=== PATIENT | female | born 1995 | race American Indian/Alaskan Native ===

== ENCOUNTER 2016-11-18 18:15 | Emergency (ER) | payer MEDICAID ==
[2016-11-18 18:26] VITALS: BMI 39.9
[2016-11-18 18:27] VITALS: TEMP 99.4
--- NOTE | 2016-11-18 20:12 | ED PDOC ---
Arrival/HPI - General Chief Complaint: Back Pain Time Seen by Provider: 11/18/16 18:38 Historian: Patient - History of Present Illness Narrative History of Present Illness (Text): 11/18/16 20:09 21-year-old morbidly obese female with a hx of HTN non compliant with medications for the past 2 years presents today with cough, sore throat, subjective fevers and upper back pain x 3 days. no abdominal pain. no urinary symptoms. pt c/o achy back pain worse with cough. c/o sore throat and pain with swallowing. took otc medications without relief. pt denies urinary symptoms. no other complaints. Time/Duration: Other (3 days) Symptom Onset: Gradual Symptom Course: Worsening Quality: Aching Severity Level: 3, Mild Activities at Onset: Rest Past Medical History - Provider Review Nursing Documentation Reviewed: Yes - Travel History Have you recently traveled outside [place] w/in the past 3 mons?: No - Tetanus Immunization Tetanus Immunization: Unknown - Cardiac Hx Cardiac Disorders: Yes Hx Hypertension: Yes - Pulmonary Hx Respiratory Disorders: No - Neurological Hx Neurological Disorder: No - HEENT Hx HEENT Disorder: No - Renal Hx Renal Disorder: No - Endocrine/Metabolic Hx Endocrine Disorders: Yes Hx Diabetes Mellitus Type 2: Yes ("borderline" per pt.) - Hematological/Oncological Hx Blood Disorders: No - Integumentary Hx Dermatological Disorder: No - Musculoskeletal/Rheumatological Hx Musculoskeletal Disorders: No - Gastrointestinal Hx Gastrointestinal Disorders: No - Genitourinary/Gynecological Hx Genitourinary Disorders: No - Psychiatric Hx Psychophysiologic Disorder: No Hx Substance Use: No - Anesthesia Hx Anesthesia: No Family/Social History - Physician Review Nursing Documentation Reviewed: Yes Family/Social History: Unknown Family HX Smoking Status: Never Smoked Hx Alcohol Use: No Hx Substance Use: No Allergies/Home Meds Allergies/Adverse Reactions: Allergies No Known Allergies Allergy (Verified 11/18/16 18:26) Review of Systems - Review of Systems Constitutional: Fatigue, Fevers ENT: Sore Throat, Sinus Congestion Respiratory: Cough. absent: SOB Cardiovascular: absent: Chest Pain, Palpitations Gastrointestinal: absent: Abdominal Pain, Nausea, Vomiting Genitourinary Female: absent: Dysuria, Frequency Musculoskeletal: Back Pain. absent: Arthralgias, Neck Pain Skin: absent: Rash, Pruritis Neurological: absent: Headache, Dizziness Physical Exam Vital Signs Reviewed: Yes Vital Signs Temp Pulse Resp BP Pulse Ox 11/18/16 20:38 93 H 18 146/92 H 100 11/18/16 18:26 99.4 F 111 H 16 151/111 H 99 Temperature: Afebrile Blood Pressure: Hypertensive Pulse: Tachycardic Respiratory Rate: Normal Appearance: Positive for: Well-Appearing, Non-Toxic, Comfortable Pain Distress: None Mental Status: Positive for: Alert and Oriented X 3 - Systems Exam Head: Present: Atraumatic Conjunctiva: Present: Normal Ears: Present: Normal, NORMAL TM Mouth: Present: Moist Mucous Membranes Pharnyx: Present: ERYTHEMA. No: EXUDATE, TONSILS ENLARGED, Peritonsilar Swelling, Uvular Deviation, Muffled/Hoarse Voice, Strider, Soft Palate/Uvular Edema Nose (External): Present: Atraumatic Nose (Internal): Present: Normal Inspection, Clear Mucous. No: Septal Hematoma Neck: Present: Normal Range of Motion, Trachea Midline. No: Meningeal Signs Respiratory/Chest: Present: Clear to Auscultation, Good Air Exchange. No: Respiratory Distress, Accessory Muscle Use Cardiovascular: Present: Tachycardic. No: Murmurs Abdomen: No: Tenderness, Distention Back: Present: Normal Inspection, Other (+ left upper back tenderness no edema, no erythema; no ecchymosis. ). No: CVA Tenderness, Midline Tenderness Upper Extremity: Present: Normal ROM Lower Extremity: Present: Normal ROM Neurological: Present: GCS=15, Speech Normal Skin: Present: Warm, Dry, Normal Color. No: Rashes Psychiatric: Present: Alert, Oriented x 3 Medical Decision Making ED Course and Treatment: 11/18/16 20:13 21yr old female with fever, cough, sore throat and left upper back pain x 3 days. hx of htn non compliant with medications for the past 2 days. pt states she just doesnt want to take the medication for bp cxr: no infiltrate toradol tylenol zithromax po pt reassessment; vitals improved; still with HTN, advised f/u with PMD, advised starting her htn meds again; patient feeling better after medications. I had a long in-depth conversation with the patient regarding her high blood pressure. I have advised the patient of the risks of chronic high blood pressure. I've advised the patient that she should take her medication prescribed by her primary care physician for her elevated pressure. Patient verbalizes understanding of discharge instructions and need for immediate followup. all aspects of this case were discussed the attending of record. impression; cough, fever, back pain, sore throat Motrin every 6 hours as needed for pain/ fever reduction Zithromax once daily 4 days Increase fluids Salt water gargles, throat lozenges Follow-up with the primary care physician within the next 2 days Return immediately if symptoms worsen or persist or if new concerning symptoms develop. - RAD Interpretation Radiology Orders: 11/18/16 19:02 CHEST TWO VIEWS (PA/LAT) [RAD] Stat - Medication Orders Current Medication Orders: Discontinued Medications Acetaminophen (Tylenol 325mg Tab) 975 mg PO STAT STA Stop: 11/18/16 19:50 Last Admin: 11/18/16 20:00 Dose: 975 MG MAR Pain/Vitals Document 11/18/16 20:00 SE (Rec: 11/18/16 20:01 SE [id number]) Pain Reassessment Is This A Pain ReAssessment? No Sleep Is patient sleeping during reassessment? No Presence of Pain Presence of Pain Yes Azithromycin (Zithromax) 500 mg PO STAT STA PRN Reason: Protocol Stop: 11/18/16 21:13 Ketorolac Tromethamine (Toradol) 60 mg IM STAT STA Stop: 11/18/16 19:50 Last Admin: 11/18/16 20:00 Dose: 60 MG IM Administration Charges Document 11/18/16 20:00 SE (Rec: 11/18/16 20:00 [id number]) Injection Site MAR Injection Site Left Vastus Lateralis Charges for Administration # of IM Administrations 1 Disposition/Present on Arrival - Present on Arrival Any Indicators Present on Arrival: No History of DVT/PE: No History of Uncontrolled Diabetes: No Urinary Catheter: No History of Decub. Ulcer: No History Surgical Site Infection Following: None - Disposition Have Diagnosis and Disposition been Completed?: Yes Diagnosis: Pharyngitis, Cough, Back pain Disposition: HOME/ ROUTINE Disposition Time: 21:00 Patient Plan: Discharge Patient Problems: Current Active Problems Problem Status Diagnosed Back pain Acute Cough Acute Pharyngitis Acute Condition: GOOD Discharge Instructions (ExitCare): Pharyngitis (ED), Acute Cough (ED), Back Pain (ED) Additional Instructions: Motrin every 6 hours as needed for pain/ fever reduction Zithromax once daily 4 days Increase fluids Salt water gargles, throat lozenges Follow-up with the primary care physician within the next 2 days Return immediately if symptoms worsen or persist or if new concerning symptoms develop. Prescriptions: Ibuprofen [Motrin] 600 mg PO Q6H PRN #20 tab PRN Reason: pain/fever reduction Azithromycin [Zithromax] 250 mg PO DAILY #4 tab Referrals: Virginia Meade MD [Staff Provider] - Follow up with primary [facility] [place] [Outside] - Follow up with primary
[2016-11-18 20:39] VITALS: BP 146/92; PULSE 93; RESP 18; O2SAT 100
--- NOTE | 2016-11-19 08:32 | RAD ---
HISTORY: cough COMPARISON: No prior. TECHNIQUE: Chest PA and lateral FINDINGS: LUNGS: No active pulmonary disease. PLEURA: No significant pleural effusion identified. No pneumothorax apparent. CARDIOVASCULAR: Normal. OSSEOUS STRUCTURES: No significant abnormalities. VISUALIZED UPPER ABDOMEN: Normal. OTHER FINDINGS: None. IMPRESSION: No active disease.
== END 2016-11-18 22:00 | disposition home or self-care (01) ==
LOC: ED 18:15
DX: J02.9 Acute pharyngitis, unspecified (principal); R05 Cough; M54.9 Dorsalgia, unspecified
CPT/HCPCS: 71020; 96372; 99283; J1885

== ENCOUNTER 2017-01-30 10:49 | Emergency (ER) | payer MEDICAID ==
[2017-01-30 11:02] VITALS: TEMP 98.5; BMI 38.7
[2017-01-30] MEDS ORDERED: Sodium Chloride 0.9% 1,000 ML IV STA (11:06)
[2017-01-30 11:29] LABS: BASO # 0.02 K/mm3 (0.0-2.0); BASO % 0.3 % (0.0-3.0); EOS # 0.1 (0.0-0.7); EOS % 1.7 % (1.5-5.0); GRAN # 4.46 (1.4-6.5); GRAN % 67.6 % (50.0-68.0); HEMOGLOBIN 11.5 gm/dL (12.0-16.0); LYMPH # 1.4 (1.2-3.4); LYMPH % 20.8 % (22.0-35.0); MEAN CELL VOLUME 73.3 fL (80.0-105.0); MEAN CORPUSCULAR HGB CONC 32.7 g/dl (31.0-37.0); MEAN PLATELET VOLUME 9.6 fl (7.0-11.0); MONO # 0.6 (0.1-0.6); MONO % 9.6 % (1.0-6.0); PLATELET COUNT 331 10^3/uL (120.0-450.0); RED CELL DISTRIBUTION WIDTH 14.5 % (11.5-14.5); WHITE BLOOD COUNT 6.6 10^3/ul (4.5-11.0)
--- NOTE | 2017-01-30 11:35 | ED PDOC ---
Arrival/HPI - General Chief Complaint: Flu-like Symptoms Time Seen by Provider: 01/30/17 11:04 Historian: Patient - History of Present Illness Narrative History of Present Illness (Text): 01/30/17 11:32 A 21 year old female, whose past medical history includes hypertension, presents to the emergency department complaining of flu-like symptoms since yesterday. Patient reports fever, chills, generalized body aches and non-bloody diarrhea. Patient denies any nausea, vomiting, abdominal pain, urinary symptoms , chest pain, shortness of breath or any other complaints. Patient denies any sick contact or recent travel. Patient is non-compliant with blood pressure medication. PMD: Non-[facility] provider Time/Duration: Other (Yesterday) Symptom Course: Unchanged Quality: Other Context: Home Past Medical History - Provider Review Nursing Documentation Reviewed: Yes - Infectious Disease Hx of Infectious Diseases: None - Tetanus Immunization Tetanus Immunization: Unknown - Reproductive Menopause: No - Cardiac Hx Cardiac Disorders: Yes Hx Hypertension: Yes - Pulmonary Hx Respiratory Disorders: No - Neurological Hx Neurological Disorder: No - HEENT Hx HEENT Disorder: No - Renal Hx Renal Disorder: No - Endocrine/Metabolic Hx Endocrine Disorders: Yes Hx Diabetes Mellitus Type 2: Yes ("borderline" per pt.) - Hematological/Oncological Hx Blood Disorders: No - Integumentary Hx Dermatological Disorder: No - Musculoskeletal/Rheumatological Hx Musculoskeletal Disorders: No - Gastrointestinal Hx Gastrointestinal Disorders: No - Genitourinary/Gynecological Hx Genitourinary Disorders: No - Psychiatric Hx Psychophysiologic Disorder: No Hx Substance Use: No - Anesthesia Hx Anesthesia: No Family/Social History - Physician Review Nursing Documentation Reviewed: Yes Family/Social History: No Known Family HX Smoking Status: Never Smoked Hx Alcohol Use: No Hx Substance Use: No Allergies/Home Meds Allergies/Adverse Reactions: Allergies No Known Allergies Allergy (Verified 11/18/16 18:26) Review of Systems - Physician Review All systems were reviewed & negative as marked: Yes - Review of Systems Constitutional: Fevers, Night Sweats Respiratory: Cough. absent: SOB Cardiovascular: absent: Chest Pain Gastrointestinal: Diarrhea. absent: Abdominal Pain, Nausea, Vomiting Genitourinary Female: absent: Dysuria, Frequency, Hematuria, Urine Output Changes Musculoskeletal: Myalgias Physical Exam Vital Signs Reviewed: Yes Vital Signs Temp Pulse Resp BP Pulse Ox 01/30/17 12:04 69 18 152/89 H 98 01/30/17 11:00 98.5 F 72 16 156/99 H 100 Temperature: Afebrile Blood Pressure: Hypertensive Pulse: Regular Respiratory Rate: Normal Appearance: Positive for: Well-Appearing, Non-Toxic, Comfortable, Other ( Morbidly obese) Pain Distress: None Mental Status: Positive for: Alert and Oriented X 3 - Systems Exam Head: Present: Atraumatic, Normocephalic Pupils: Present: PERRL Extroacular Muscles: Present: EOMI Conjunctiva: Present: Normal Mouth: Present: Moist Mucous Membranes Neck: Present: Normal Range of Motion Respiratory/Chest: Present: Clear to Auscultation, Good Air Exchange. No: Respiratory Distress, Accessory Muscle Use Cardiovascular: Present: Regular Rate and Rhythm, Normal S1, S2. No: Murmurs Abdomen: Present: Normal Bowel Sounds. No: Tenderness, Distention, Peritoneal Signs Back: Present: Normal Inspection Upper Extremity: Present: Normal Inspection. No: Cyanosis, Edema Lower Extremity: Present: Normal Inspection. No: Edema Neurological: Present: GCS=15, CN II-XII Intact, Speech Normal Skin: Present: Warm, Dry, Normal Color. No: Rashes Psychiatric: Present: Alert, Oriented x 3, Normal Insight, Normal Concentration Medical Decision Making ED Course and Treatment: 01/30/17 11:32 Impression: A 21 year old female with fever, chills, cough, generalized body aches and non- bloody diarrhea. Plan: -- Chest xray -- Labs -- Urinalysis -- IV fluids -- Reassess and disposition Progress Notes: Report Date : 01/30/2017 12:01:42 Procedure: Chest xray Dictator : Flower Puri V. IMPRESSION: No active disease. - Lab Interpretations Lab Results: 01/30/17 11:20 01/30/17 11:20 Lab Results 01/30/17 12:57: Urine Color Yellow, Urine Appearance Clear, Urine pH 6.0, Ur Specific [place] 1.025, Urine Protein Negative, Urine Glucose (UA) Negative, Urine Ketones Negative, Urine Blood Negative, Urine Nitrate Negative, Urine Bilirubin Negative, Urine Urobilinogen 0.2, Ur Leukocyte Esterase Negative 01/30/17 11:20: Sodium 138, Potassium 4.1, Chloride 107, Carbon Dioxide 22, Anion Gap 13, BUN 9, Creatinine 0.7, Est GFR ( Amer) > 60, Est GFR (Non- Af Amer) > 60, Random Glucose 107, Calcium 9.0, Total Bilirubin 0.3, AST 36, ALT 34, Alkaline Phosphatase 65, Total Protein 7.8, Albumin 4.4, Globulin 3.5, Albumin/Globulin Ratio 1.3, Lipase 70 01/30/17 11:20: WBC 6.6, RBC 4.80, Hgb 11.5 L, Hct 35.2 L, MCV 73.3 L, MCH 24.0 L, MCHC 32.7, RDW 14.5, Plt Count 331, MPV 9.6, Gran % 67.6, Lymph % (Auto) 20.8 L, [place] % (Auto) 9.6 H, Eos % (Auto) 1.7, Baso % (Auto) 0.3, Gran # 4.46, Lymph # 1.4, [place] # 0.6, Eos # 0.1, Baso # 0.02 I have reviewed the lab results: Yes - RAD Interpretation Radiology Orders: 01/30/17 11:04 CHEST PORTABLE [RAD] Stat - Medication Orders Current Medication Orders: Discontinued Medications Sodium Chloride (Sodium Chloride 0.9%) 1,000 mls @ 999 mls/hr IV .Q1H1M STA Stop: 01/30/17 12:06 Last Admin: 01/30/17 11:15 Dose: 999 mls/hr - Scribe Statement The provider has reviewed the documentation as recorded by the Munira Brown Provider Scribe Attestation: All medical record entries made by the Pashaibtomi were at my direction and personally dictated by me. I have reviewed the chart and agree that the record accurately reflects my personal performance of the history, physical exam, medical decision making, and the department course for this patient. I have also personally directed, reviewed, and agree with the discharge instructions and disposition. Disposition/Present on Arrival - Present on Arrival Any Indicators Present on Arrival: No History of DVT/PE: No History of Uncontrolled Diabetes: No Urinary Catheter: No History of Decub. Ulcer: No History Surgical Site Infection Following: None - Disposition Have Diagnosis and Disposition been Completed?: Yes Diagnosis: Viral syndrome Disposition: HOME/ ROUTINE Disposition Time: 13:00 Condition: IMPROVED Discharge Instructions (ExitCare): Viral Syndrome (ED) Additional Instructions: Thank you for letting us take care of you today. Your provider was Dr. Forrest. You were treated for a viral syndrome. The emergency medical care you received today was directed at your acute symptoms. If you were prescribed any medication, please fill it and take as directed. It may take several days for your symptoms to resolve. Return to the Emergency Department if your symptoms worsen, do not improve, or if you have any other problems. Please contact your doctor or call one of the physicians/clinics you have been referred to that are listed on the Patient Visit Information form that is included in your discharge packet. Bring any paperwork you were given at discharge with you along with any medications you are taking to your follow up visit. Our treatment cannot replace ongoing medical care by a primary care provider (PCP) outside of the emergency department. Thank you for allowing the [facility] team to be part of your care today. Follow up with the clinic for outpatient care. Prescriptions: Ibuprofen [Motrin] 600 mg PO Q6 PRN #20 tab PRN Reason: Pain, Moderate (4-7) Referrals: [facility] [Outside] - Follow up with primary [facility] [Outside] - Follow up with primary PCP,NO [Primary Care Provider] - Follow up with primary
[2017-01-30 11:38] LABS: ALB/GLOB RATIO 1.3 (1.1-1.8); ALBUMIN 4.4 g/dL (3.0-4.8); ALT/SGPT 34 U/L (7-56); AST/SGOT 36 U/L (15-39); BLOOD UREA NITROGEN 9 mg/dL (7-21); GFR AFRICAN-AMERICAN > 60; GFR NON-AFRICAN AMERICAN > 60; LIPASE 70 U/L (23-300)
--- NOTE | 2017-01-30 12:03 | RAD ---
HISTORY: r/o infiltate COMPARISON: 11/18/2016 FINDINGS: LUNGS: No active pulmonary disease. PLEURA: No significant pleural effusion identified, no pneumothorax apparent. CARDIOVASCULAR: Top-normal heart OSSEOUS STRUCTURES: No significant abnormalities. VISUALIZED UPPER ABDOMEN: Normal. OTHER FINDINGS: None. IMPRESSION: No active disease.
[2017-01-30 12:05] VITALS: BP 152/89; PULSE 69; RESP 18; O2SAT 98
[2017-01-30 13:03] LABS: URINE BILIRUBIN NEGATIVE (NEGATIVE); URINE BLOOD NEGATIVE (NEGATIVE); URINE GLUCOSE (UA) NEGATIVE (NEGATIVE); URINE LEUKOCYTE ESTERASE NEGATIVE Leu/uL (NEGATIVE); URINE NITRATE NEGATIVE (NEGATIVE); URINE PROTEIN NEGATIVE mg/dL (<30 mg/dL); URINE UROBILINOGEN 0.2 E.U./dL (<1 E.U./dL)
[2017-01-30 13:05] LABS: URINE APPEARANCE CLEAR (CLEAR); URINE COLOR YELLOW (YELLOW)
== END 2017-01-30 13:23 | disposition home or self-care (01) ==
LOC: ED 10:49
DX: B34.9 Viral infection, unspecified (principal); I10 Essential (primary) hypertension
CPT/HCPCS: 71010; 80053; 81003; 83690; 85025; 99282; J7040

== ENCOUNTER 2017-05-20 11:00 | Emergency (ER) | payer MEDICAID ==
[2017-05-20 11:12] VITALS: PULSE 95; RESP 17; TEMP 98.2; BMI 45.7
--- NOTE | 2017-05-20 11:12 | ED PDOC ---
Arrival/HPI - General Historian: Patient - History of Present Illness Time/Duration: 4-6 hours Symptom Onset: Sudden Symptom Course: Intermittent Quality: Stabbing Severity Level: Moderate, Severe Activities at Onset: Rest Context: Home <Barbi Burris - Last Filed: 05/20/17 12:16> <Diomedes Larkin - Last Filed: 05/20/17 12:40> - General Chief Complaint: Back Pain Time Seen by Provider: 05/20/17 11:05 - History of Present Illness Narrative History of Present Illness (Text): 05/20/17 11:12 21F w/ PMH sig for HTN eval in ED for bilat lower back pain x 12 hrs. Pain is constant since onset, moderate-severe, sharp, radiates to inguinal area bilat. Pt reports that she has had similar since receiving epidural in 2013- was referred to pain mgmt , has not been seen yet. Also here for recent encounter of unprotected sex, reports vaginal irritation, some vaginal discharge. Admits to coughing and sneezing last night. Denies F&C, N&V, constipation, diarrhea, dysuria, hematuria, other complaints. PMH: HTN, obesity PSH: Plate in left jaw All: NKDA SH: Denies ETOH, tobacco or illicit drug use. Unprotected sexual contact on . PMD: Tom Nesbitt (Barbi Burris) Past Medical History - Provider Review Nursing Documentation Reviewed: Yes - Infectious Disease Hx of Infectious Diseases: None - Tetanus Immunization Tetanus Immunization: Unknown - Cardiac Hx Cardiac Disorders: Yes Hx Hypertension: Yes - Pulmonary Hx Respiratory Disorders: No - Neurological Hx Neurological Disorder: No - HEENT Hx HEENT Disorder: No - Renal Hx Renal Disorder: No - Endocrine/Metabolic Hx Endocrine Disorders: Yes Hx Diabetes Mellitus Type 2: Yes ("borderline" per pt.) - Hematological/Oncological Hx Blood Disorders: No - Integumentary Hx Dermatological Disorder: No - Musculoskeletal/Rheumatological Hx Musculoskeletal Disorders: No - Gastrointestinal Hx Gastrointestinal Disorders: No - Genitourinary/Gynecological Hx Genitourinary Disorders: No - Psychiatric Hx Psychophysiologic Disorder: No Hx Substance Use: No - Anesthesia Hx Anesthesia: No <Barbi Burris - Last Filed: 05/20/17 12:16> Family/Social History - Physician Review Nursing Documentation Reviewed: Yes Family/Social History: No Known Family HX Smoking Status: Never Smoked Hx Alcohol Use: No Hx Substance Use: No <Barbi Burris - Last Filed: 05/20/17 12:16> Allergies/Home Meds <Barbi Burris - Last Filed: 05/20/17 12:16> <Diomedes Larkin - Last Filed: 05/20/17 12:40> Allergies/Adverse Reactions: Allergies No Known Allergies Allergy (Verified 05/20/17 11:12) Review of Systems - Review of Systems Constitutional: Normal. absent: Fatigue Eyes: Normal. absent: Vision Changes ENT: Normal. absent: Sore Throat Respiratory: Cough. absent: Normal Cardiovascular: Normal. absent: Chest Pain Gastrointestinal: Normal. absent: Constipation, Diarrhea, Nausea, Vomiting Genitourinary Female: Vaginal Discharge. absent: Normal, Dysuria, Frequency, Hematuria Musculoskeletal: Back Pain (chronic). absent: Normal Skin: Normal. absent: Rash Neurological: Normal. absent: Headache <Barbi Burris - Last Filed: 05/20/17 12:16> Physical Exam Vital Signs Reviewed: Yes Temperature: Afebrile Blood Pressure: Normal Pulse: Regular Respiratory Rate: Normal Appearance: Positive for: Non-Toxic, Comfortable Pain Distress: None Mental Status: Positive for: Alert and Oriented X 3 - Systems Exam Head: Present: Atraumatic, Normocephalic Extroacular Muscles: Present: EOMI Conjunctiva: Present: Normal Mouth: Present: Moist Mucous Membranes Nose (External): Present: Atraumatic Neck: Present: Normal Range of Motion Respiratory/Chest: Present: Clear to Auscultation, Good Air Exchange. No: Respiratory Distress, Accessory Muscle Use Cardiovascular: Present: Regular Rate and Rhythm, Normal S1, S2. No: Murmurs Abdomen: Present: Normal Bowel Sounds. No: Tenderness, Distention (obese), Peritoneal Signs, Rebound, Guarding Genitourinary/Pelvic Exam: Present: Normal External Genitalia, Vaginal Discharge. No: Vaginal Bleeding, Vaginal Lesions, Adenexal Tenderness, Adenexal Mass, Cervical Motion Tendernes Back: Present: Paraspinal Tenderness (lower back, bilat) Upper Extremity: Present: Normal Inspection. No: Cyanosis, Edema Lower Extremity: Present: Normal Inspection. No: Edema Neurological: Present: GCS=15, CN II-XII Intact, Speech Normal Skin: Present: Warm, Dry, Normal Color. No: Rashes Psychiatric: Present: Alert, Oriented x 3, Normal Insight <Barbi Burris - Last Filed: 05/20/17 12:16> Vital Signs Temp Pulse Resp BP Pulse Ox 05/20/17 12:28 17 149/98 H 99 05/20/17 11:13 98.2 F 95 H 17 100 05/20/17 11:11 98.2 F 95 H 17 149/102 H 100 Medical Decision Making <Barbi Burris - Last Filed: 05/20/17 12:16> - Lab Interpretations I have reviewed the lab results: Yes <Diomedes Larkin - Last Filed: 05/20/17 12:40> ED Course and Treatment: 05/20/17 11:12 Pt seen/evaluated, will do STD work up, pt offered prophylactic ABx-refused. Will perform pelvic exam. ordered NSAID for back pain. Case DW ED attending. 05/20/17 12:12 Pt refusing Toradol. (Barbi Burris) 05/20/17 In agreement with resident note, which includes further HPI details. Patient was seen and evaluated with resident, came up with plan and treatment together. (N.R) (Diomedes Larkin) - Lab Interpretations Lab Results: Lab Results 05/20/17 11:50: Urine HCG, Qual Negative 05/20/17 11:50: Urine Color Yellow, Urine Appearance Clear, Urine pH 6.0, Ur Specific [place] 1.025, Urine Protein Trace H, Urine Glucose (UA) Negative, Urine Ketones Negative, Urine Blood Negative, Urine Nitrate Negative, Urine Bilirubin Negative, Urine Urobilinogen 1.0 H, Ur Leukocyte Esterase Negative, Urine RBC Negative, Urine WBC 0 - 2, Ur Epithelial Cells 0 - 2, Urine Bacteria Few - Medication Orders Current Medication Orders: Discontinued Medications Ketorolac Tromethamine (Toradol) 15 mg IM STAT STA Stop: 05/20/17 11:43 Last Admin: 05/20/17 12:27 Dose: Not Given Non-Admin Reason: Patient Refused <Barbi Burris - Last Filed: 05/20/17 12:16> - PA / BACON SKINNER / Resident Statement / has reviewed & agrees with the documentation as recorded. / has examined the patient and agrees with the treatment plan. - Scribe Statement The provider has reviewed the documentation as recorded by the Scribe <Diomedes Larkin - Last Filed: 05/20/17 12:40> - Scribe Statement Laurie Reeddua Provider Scribe Attestation: All medical record entries made by the Scribe were at my direction and personally dictated by me. I have reviewed the chart and agree that the record accurately reflects my personal performance of the history, physical exam, medical decision making, and the department course for this patient. I have also personally directed, reviewed, and agree with the discharge instructions and disposition. (Diomedes Larkin) Disposition/Present on Arrival - Present on Arrival Any Indicators Present on Arrival: No History of DVT/PE: No History of Uncontrolled Diabetes: No Urinary Catheter: No History Surgical Site Infection Following: None - Disposition Have Diagnosis and Disposition been Completed?: Yes Disposition Time: 12:23 Patient Plan: Discharge <Barbi Burris - Last Filed: 05/20/17 12:16> <Diomedes Larkin - Last Filed: 05/20/17 12:40> - Disposition Diagnosis: Chronic bilateral low back pain, Screening for STD (sexually transmitted disease) Disposition: HOME/ ROUTINE Condition: STABLE Discharge Instructions (ExitCare): Sexually Transmitted Diseases (ED), Condom Use (ED), Safe Sex (ED), Female Condom Use (ED), Chronic Back Pain (ED), Back Exercises (ED) Additional Instructions: Please follow up with your primary care provider within 1-2 weeks after ED visit. Please make an appointment with the pain management doctor your primary care provider has referred you to. Prescriptions: Naproxen [Naprosyn] 500 mg PO Q8H PRN #15 tablet PRN Reason: Pain, Moderate (4-7) Referrals: Kyara Nesbitt MD [Family Provider] - Follow up with primary Forms: [employer] ([place]), WORK NOTE
[2017-05-20 12:04] LABS: URINE APPEARANCE CLEAR (CLEAR); URINE BILIRUBIN NEGATIVE (NEGATIVE); URINE BLOOD NEGATIVE (NEGATIVE); URINE COLOR YELLOW (YELLOW); URINE GLUCOSE (UA) NEGATIVE (NEGATIVE); URINE KETONE NEGATIVE (NEGATIVE); URINE LEUKOCYTE ESTERASE NEGATIVE Leu/uL (NEGATIVE); URINE PROTEIN TRACE mg/dL (<30 mg/dL)
[2017-05-20 12:16] LABS: URINE BACTERIA FEW (NEG); URINE EPITHELIAL CELLS 0 - 2 /hpf (0-5); URINE RBC NEGATIVE /hpf (0-2); URINE WBC 0 - 2 /hpf (0-6)
[2017-05-20 12:29] VITALS: BP 149/98; O2SAT 99
== END 2017-05-20 12:29 | disposition home or self-care (01) ==
LOC: ED 11:00
DX: M54.5 Low back pain (principal); G89.29 Other chronic pain; Z11.3 Encounter for screening for infections with a predominantly sexual mode of transmission

== ENCOUNTER 2017-05-29 15:56 | Emergency (ER) | payer MEDICAID ==
[2017-05-29 15:56] VITALS: BMI 45.7
[2017-05-29 16:14] VITALS: TEMP 98.3
[2017-05-29] MEDS ORDERED: DiphenhydrAMINE 50 mg/ml Inj IVP STA (16:56)
--- NOTE | 2017-05-29 17:20 | ED PDOC ---
Arrival/HPI - General Chief Complaint: GI Problem Time Seen by Provider: 05/29/17 16:28 Historian: Patient - History of Present Illness Narrative History of Present Illness (Text): 05/29/17 17:16 21 yo F w/ PMH of HTN, anemia and borderline DM, reports waking up this AM with symptoms of generalized weakness, dizziness with no vertigo, nausea with 1 episode of vomiting. She also is reporting mild R sided headache which started 20 mins ago. Patient states that she has not been taking her bp medication, norvasc for over a year, and her iron pills for her anemia for 4 years. Reports (-) worsening of symptoms with movement of head. Otherwise: (-) lightheadedness , (-) trauma, (-) URI symptoms, (-) tinnitus, (-) hearing loss, (-) chest pain, (-) dyspnea, (-) fever, (-)nausea / vomiting, (-) diarrhea, (-) syncope, (-) GI bleeding. PMD L[facility] ([place]) Past Medical History - Provider Review Nursing Documentation Reviewed: Yes - Infectious Disease Hx of Infectious Diseases: None - Tetanus Immunization Tetanus Immunization: Unknown - Cardiac Hx Cardiac Disorders: Yes Hx Hypertension: Yes - Pulmonary Hx Respiratory Disorders: No - Neurological Hx Neurological Disorder: No - HEENT Hx HEENT Disorder: No - Renal Hx Renal Disorder: No - Endocrine/Metabolic Hx Endocrine Disorders: Yes Hx Diabetes Mellitus Type 2: Yes ("borderline" per pt.) - Hematological/Oncological Hx Blood Disorders: No - Integumentary Hx Dermatological Disorder: No - Musculoskeletal/Rheumatological Hx Musculoskeletal Disorders: No - Gastrointestinal Hx Gastrointestinal Disorders: No - Genitourinary/Gynecological Hx Genitourinary Disorders: No - Psychiatric Hx Psychophysiologic Disorder: No Hx Substance Use: No - Anesthesia Hx Anesthesia: No Family/Social History - Physician Review Nursing Documentation Reviewed: Yes Family/Social History: Diabetes, Hypertension Smoking Status: Never Smoked Hx Alcohol Use: No Hx Substance Use: No Allergies/Home Meds Allergies/Adverse Reactions: Allergies No Known Allergies Allergy (Verified 05/29/17 16:10) Review of Systems - Review of Systems Constitutional: Normal. absent: Fatigue, Weight Change, Fevers ENT: Normal. absent: Hearing Changes, Sore Throat, Rhinorrhea, Sinus Congestion Respiratory: Normal Cardiovascular: Normal. absent: Chest Pain, Palpitations, Edema Gastrointestinal: Normal. absent: Abdominal Pain, Nausea, Vomiting Musculoskeletal: Normal. absent: Arthralgias, Back Pain, Neck Pain Skin: Normal. absent: Rash, Pruritis, Skin Lesions Neurological: Normal, Headache, Dizziness. absent: Focal Weakness Physical Exam - Physical Exam Narrative Physical Exam (Text): 05/29/17 17:20 GENERAL APPEARANCE: Patient is obese female, is awake, alert, oriented x 3, in no acute distress. SKIN: Warm, dry; (-) cyanosis. HEAD: (-) scalp swelling or tenderness. EYES: (-) conjunctival pallor. ENMT: TMs normal. Mucous membranes moist. NECK: (-) tenderness, (-) stiffness, (-) lymphadenopathy. Carotids: (-) bruit. CHEST AND RESPIRATORY: (-) rales, (-) rhonchi, (-) wheezes; breath sounds equal bilaterally. HEART AND CARDIOVASCULAR: (-) irregularity; (-) murmur, (-) gallop. ABDOMEN AND GI: Soft; (-) distention, (-) tenderness, (-) rebound, (-) guarding , (-) palpable masses, (-) flank tenderness. EXTREMITIES: (-) deformity; (-) edema. Distal pulses: present. NEURO AND PSYCH: Mental status as above. 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 Strength and DTRs symmetric. Gait: normal. Vital Signs Temp Pulse Resp BP Pulse Ox 05/29/17 17:41 66 17 155/95 H 94 L 05/29/17 16:14 98.3 F 79 18 154/100 H 100 Medical Decision Making ED Course and Treatment: 05/29/17 17:20 21 yo F w/ PMH of HTN, anemia and borderline DM, reports waking up this AM with symptoms of generalized weakness, dizziness with no vertigo, nausea with 1 episode of vomiting. Plan: -- Labs -- IV fluids -- Urinalysis -- EKG -- CXR -- Reglan IV / Benadryl IV -- Reassess and disposition EKG : NSR at 79 bpm, (-) acute ST changes, as read by KURT Chest x-ray : NAD, as read by [facility]. [facility] [place] 05/29/17 19:32 Labs reviewed and are wnl. On reevaluation, patient reports significant improvement of her headache, denies any dizziness, nausea, chest pain or shortness of breath at this time. Repeat VS P 66 BP 155/95 R 17. On exam, patient is in no distress, breathing easy and unlabored, lungs CTA, cardiac RRR, neuro exam shows no focal findings, ambulatory with a normal gait. Diagnostic results d/w the patient in great detail. Patient states that she has a scheduled appointment with her pmd in 4 days. Advised to take Rx norvasc. Return to the emergency room at any time for any new or worsening symptoms. Patient states she fully agrees with and understands discharge instructions. States that she agrees with the plan and disposition. Verbalized and repeated discharge instructions and plan. I have given the patient opportunity to ask questions. - Lab Interpretations Lab Results: 05/29/17 17:10 05/29/17 17:10 Lab Results 05/29/17 17:10: Sodium 146, Potassium 4.0, Chloride 108 H, Carbon Dioxide 27, Anion Gap 15, BUN 7, Creatinine 0.7, Est GFR ( Amer) > 60, Est GFR (Non- Af Amer) > 60, Random Glucose 93, Calcium 9.2, Magnesium 2.0, Total Bilirubin 0.5, AST 47 H, ALT 45, Alkaline Phosphatase 66, Lactate Dehydrogenase 855 H, Total Creatine Kinase 311 H, CK-MB (CK-2) 0.9, CK-MB (CK-2) % Cancelled, Troponin I < 0.01, Total Protein 7.7, Albumin 4.3, Globulin 3.4, Albumin/ Globulin Ratio 1.3 05/29/17 17:10: WBC 7.7, RBC 5.10, Hgb 12.3, Hct 37.1, MCV 72.7 L, MCH 24.1 L, MCHC 33.2, RDW 14.7 H, Plt Count 315, MPV 9.7, Gran % 63.3, Lymph % (Auto) 25.8 , Mckenzie % (Auto) 9.0 H, Eos % (Auto) 1.6, Baso % (Auto) 0.3, Gran # 4.90, Lymph # 2.0, Mckenzie # 0.7 H, Eos # 0.1, Baso # 0.02 05/29/17 17:10: Urine Color Yellow, Urine Appearance Sl cloudy, Urine pH 7.0, Ur Specific Kila 1.020, Urine Protein Trace H, Urine Glucose (UA) Negative, Urine Ketones Negative, Urine Blood Large H, Urine Nitrate Negative, Urine Bilirubin Negative, Urine Urobilinogen 0.2, Ur Leukocyte Esterase Negative, Urine RBC 2 - 5, Urine WBC 1 - 3, Ur Epithelial Cells 3 - 4, Urine Bacteria Few - RAD Interpretation Radiology Orders: 05/29/17 16:54 CHEST TWO VIEWS (PA/LAT) [RAD] Stat - Medication Orders Current Medication Orders: Sodium Chloride (Sodium Chloride 0.9%) 500 mls @ 999 mls/hr IV .Q31M STA Stop: 05/29/17 20:00 Discontinued Medications Diazepam (Valium) 2 mg PO ONCE STA PRN Reason: Protocol Stop: 05/29/17 19:30 Diphenhydramine HCl (Benadryl) 25 mg IVP STAT STA Stop: 05/29/17 16:57 Last Admin: 05/29/17 17:25 Dose: 25 mg IVP Administration Document 05/29/17 17:25 [id number] Charges for Administration # of IVP Administrations 1 Metoclopramide HCl (Reglan) 10 mg IVP STAT STA Stop: 05/29/17 16:57 Last Admin: 05/29/17 17:25 Dose: 10 mg IVP Administration Document 05/29/17 17:25 [facility] (Rec: 05/29/17 17:25 [facility] [id number]) Charges for Administration # of IVP Administrations 1 - 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 Disposition/Present on Arrival - Present on Arrival Any Indicators Present on Arrival: No History of DVT/PE: No History of Uncontrolled Diabetes: No Urinary Catheter: No History of Decub. Ulcer: No History Surgical Site Infection Following: None - Disposition Have Diagnosis and Disposition been Completed?: Yes Diagnosis: Dizziness, Hypertension Disposition: HOME/ ROUTINE Disposition Time: 19:30 Patient Plan: Discharge Patient Problems: Current Active Problems Problem Status Onset Dizziness Acute Hypertension Acute Condition: STABLE Discharge Instructions (ExitCare): Hypertension (ED), Dizziness (ED) Print Language: LAO Additional Instructions: Thank you for letting us take care of you today. You were treated for his dizziness, hypertension. The emergency medical care you received today was directed at your acute symptoms. If you were prescribed any medication, please fill it and take as directed. It may take several days for your symptoms to resolve. Return to the Emergency Department if your symptoms worsen, do not improve, or if you have any other problems. Please see your doctor in 2-4 days for re-evaluation and follow up as scheduled. Bring any paperwork you were given at discharge with you along with any medications you are taking to your follow up visit. Our treatment cannot replace ongoing medical care by a primary care provider (PCP) outside of the emergency department. Thank you for allowing the [facility] team to be part of your care today. Prescriptions: amLODIPine [Norvasc] 2.5 mg PO DAILY #20 tab Referrals: PCP,NO [Primary Care Provider] - Follow up with primary Forms: [email or web address] ([place]), WORK NOTE
[2017-05-29 17:32] LABS: BASO # 0.02 K/mm3 (0.0-2.0); BASO % 0.3 % (0.0-3.0); EOS # 0.1 (0.0-0.7); EOS % 1.6 % (1.5-5.0); GRAN # 4.9 (1.4-6.5); GRAN % 63.3 % (50.0-68.0); HEMATOCRIT 37.1 % (36.0-48.0); LYMPH % 25.8 % (22.0-35.0); MEAN CELL VOLUME 72.7 fl (80.0-105.0); MEAN CORPUSCULAR HEMOGLOBIN 24.1 pg (25.0-35.0); MEAN CORPUSCULAR HGB CONC 33.2 g/dl (31.0-37.0); MEAN PLATELET VOLUME 9.7 fl (7.0-11.0); MONO # 0.7 (0.1-0.6); RED CELL DISTRIBUTION WIDTH 14.7 % (11.5-14.5); URINE BILIRUBIN NEGATIVE (NEGATIVE); URINE BLOOD LARGE (NEGATIVE); URINE GLUCOSE (UA) NEGATIVE (NEGATIVE); URINE KETONE NEGATIVE (NEGATIVE); URINE LEUKOCYTE ESTERASE NEGATIVE Leu/uL (NEGATIVE); URINE PROTEIN TRACE mg/dL (<30 mg/dL); URINE UROBILINOGEN 0.2 E.U./dL (<1 E.U./dL); WHITE BLOOD COUNT 7.7 10^3/ul (4.5-11.0)
[2017-05-29 17:41] VITALS: BP 155/95
[2017-05-29 17:43] LABS: ALB/GLOB RATIO 1.3 (1.1-1.8); ALKALINE PHOSPHATASE 66 U/L (38-126); ALT/SGPT 45 U/L (7-56); AST/SGOT 47 U/L (14-36); BILIRUBIN,TOTAL 0.5 mg/dL (0.2-1.3); BLOOD UREA NITROGEN 7 mg/dL (7-21); CALCIUM 9.2 mg/dL (8.4-10.5); CARBON DIOXIDE 27 mmol/L (21-33); CHLORIDE 108 mmol/L (98-107); GFR AFRICAN-AMERICAN > 60; GLUCOSE,RANDOM 93 mg/dL (70-110); SODIUM 146 mmol/L (132-148); TOTAL PROTEIN 7.7 g/dL (5.8-8.3)
[2017-05-29 17:44] LABS: URINE APPEARANCE SL CLOUDY (CLEAR); URINE COLOR YELLOW (YELLOW)
[2017-05-29 17:47] LABS: URINE BACTERIA FEW (NEG)
[2017-05-29 17:56] LABS: TROPONIN I < 0.01 ng/mL
--- NOTE | 2017-05-29 18:39 | RAD ---
HISTORY: dizzy COMPARISON: Chest x-ray performed 01/30/17 TECHNIQUE: Chest PA and lateral FINDINGS: Examination limited by habitus. LUNGS: No focal consolidation. Please note that chest x-ray has limited sensitivity for the detection of pulmonary masses. PLEURA: No significant pleural effusion identified. No definite pneumothorax . CARDIOVASCULAR: Heart size appears within normal limits. OSSEOUS STRUCTURES: Mild degenerative changes of the spine. VISUALIZED UPPER ABDOMEN: Unremarkable. OTHER FINDINGS: None. IMPRESSION: No focal consolidation, significant pleural effusion, or definite pneumothorax identified.
[2017-05-29] MEDS ORDERED: Sodium Chloride 0.9% 500 ML IV STA (19:30)
[2017-05-29 19:45] VITALS: PULSE 76
[2017-05-29 19:48] VITALS: RESP 18; O2SAT 99
--- NOTE | 2017-05-30 20:38 | CARD ---
APPROVED REPORT EKG Measurement Heart [id number] <Conclusion> Normal sinus rhythm with sinus arrhythmia Normal ECG
== END 2017-05-29 19:48 | disposition home or self-care (01) ==
LOC: ED 15:56
DX: I10 Essential (primary) hypertension (principal); R42 Dizziness and giddiness; E11.9 Type 2 diabetes mellitus without complications
CPT/HCPCS: 71020; 80053; 81001; 82550; 82553; 83615; 83735; 84484; 85025; 87086; 93005; 96374; 96375; 99284; J1200; J2765